=== PATIENT | female | born 1990 | race Hispanic/Latino ===

== ENCOUNTER 2021-11-25 23:00 | Emergency (ER) | payer OTHER ==
[~2021-11-25] VITALS: Ht 157.5 cm; Wt 80.7 kg
[2021-11-25 23:24] LABS: CLARITY,URINE SL CLOUDY (CLEAR); COLOR,URINE YELLOW (YELLOW); KETONES,URINE NEGATIVE (NEGATIVE); LEUKOCYTE ESTERASE ,URINE TRACE (NEGATIVE); NITRITE,URINE NEGATIVE (NEGATIVE); PROTEIN,URINE DIPSTICK NEGATIVE (NEGATIVE); URINE UROBILINOGEN 1 mg/dL (0.2 - 1)
[2021-11-25 23:31] LABS: AMORPHOUS SEDIMENT,URINE MODERATE (FEW); BACTERIA,URINE FEW /HPF; EPITHELIAL CELLS,URINE MANY /LPF; RBC,URINE 0-5 /HPF (0-5)
[2021-11-26] MEDS ORDERED: IBUPROFEN 600 MG TAB PO STA (00:30)
[2021-11-26] MEDS ORDERED: CYCLOBENZAPRINE HCL 10 MG TAB PO ONE (00:30)
[2021-11-26 01:45] VITALS: BP 105/77
== END 2021-11-26 01:51 | disposition home or self-care (01) ==
LOC: ER 23:41
DX: S16.1XXA Strain of muscle, fascia and tendon at neck level, initial encounter (principal); S29.012A Strain of muscle and tendon of back wall of thorax, initial encounter; S39.012A Strain of muscle, fascia and tendon of lower back, initial encounter; V43.52XA Car driver injured in collision with other type car in traffic accident, initial encounter; Y92.488 Other paved roadways as the place of occurrence of the external cause
CPT/HCPCS: 72050; 72070; 72100; 81001; 81025; 99283